=== PATIENT | male | born 1995 | race Caucasian/White ===

== ENCOUNTER 2018-04-05 16:16 | Emergency (ER) | payer OTHER ==
[2018-04-05 16:36] VITALS: BP 165/69
--- NOTE | 2018-04-05 17:14 | UC ---
Abdominal Pain Male HPI - HPI Summary HPI Summary: C/O generalized abdominal pain with fevers. Has a frontal headache as well. Decreased appetite. No nausea/ vomiting/ or diarrhea. - History of Current Complaint Chief Complaint: UCAbdominalPain Stated Complaint: FEVER, UPSET STOMACH Time Seen by Provider: 04/05/18 16:59 Hx Obtained From: Patient Onset/Duration: Gradual Onset, Lasting Days - 1, Worse Since - last night Severity Initially: Mild Severity Currently: Moderate Pain Intensity: 7 Location: Diffuse Radiates: No Character: Dull Aggravating Factor(s): Nothing Associated Signs And Symptoms: Positive: Fever, Cough, Back Pain - has chronic from football, Decreased Appetite. Negative: Constipation, Nausea, Vomiting, Diarrhea - Allergies/Home Medications Allergies/Adverse Reactions: Allergies Allergy/AdvReac Type Severity Reaction Status Date / Time No Known Allergies Allergy Verified 04/05/18 16:36 PMH/Surg Hx/FS Hx/Imm Hx Previously Healthy: Yes - Surgical History Surgical History: None - Family History Known Family History: Positive: Cardiac Disease, Hypertension - Social History Occupation: Student Lives: Dormitory/Roommates Alcohol Use: Rare Substance Use Type: None Smoking Status (MU): Never Smoked Tobacco Review of Systems Constitutional: Fever ENT: Nasal Discharge Respiratory: Cough Gastrointestinal: Abdominal Pain Neurological: Headache Is Patient Immunocompromised?: No All Other Systems Reviewed And Are Negative: Yes Physical Exam Triage Information Reviewed: Yes Appearance: Well-Nourished, Ill-Appearing, Pain Distress Vital Signs: Initial Vital Signs Temp 99.8 F 04/05/18 16:30 Pulse 96 04/05/18 16:30 Resp 16 04/05/18 16:30 BP 165/69 04/05/18 16:30 Pulse Ox 99 04/05/18 16:30 Vital Signs Reviewed: Yes Eyes: Positive: Conjunctiva Clear ENT: Positive: Pharyngeal erythema, Nasal congestion, TMs normal Neck: Positive: Supple, Nontender, No Lymphadenopathy Respiratory Exam: Normal Cardiovascular Exam: Normal Abdomen Description: Positive: McBurney's Point Tenderness. Negative: Nontender , Peritoneal Signs Bowel Sounds: Positive: Present Musculoskeletal Exam: Normal Neurological Exam: Normal Psychological Exam: Normal Skin Exam: Normal Abd Pain Male Course/Dx - Differential Dx/Clinical Impression Differential Diagnosis/HQI/PQRI: Appendicitis, Bowel Obstruction, Constipation, Diverticulitis Provider Diagnoses: Right lower quadrant abdominal pain - Physician Notification/Consults Discussed Patient Care With: PITER Time Discussed With Above Provider: 17:19 Discharge - Sign-Out/Discharge Documenting (check all that apply): Patient Departure All imaging exams completed and their final reports reviewed: No Studies - Discharge Plan Condition: Stable Disposition: HOME-RECOMMEND TO ED Patient Education Materials: Acute Abdominal Pain (ED) Referrals: No Primary Care Phys,NOPCP [Primary Care Provider] - Additional Instructions: GO STRAIGHT TO THE ER. DO NOT HAVE ANYTHING TO EAT OR DRINK - Billing Disposition and Condition Condition: STABLE Disposition: Home-Recommend to ED
== END 2018-04-05 17:30 | disposition home health service (06) ==
LOC: UCCORT 16:16
DX: R10.31 Right lower quadrant pain (principal); M54.9 Dorsalgia, unspecified
CPT/HCPCS: 99202; G0463